=== PATIENT | female | born 1970 | race Caucasian/White ===

== ENCOUNTER 2024-05-03 13:24 | Emergency (ER) | payer OTHER, SELFPAY ==
[2024-05-03 13:30] VITALS: BP 172/116
[2024-05-03 13:44] VITALS: BMI 23.7
--- NOTE | 2024-05-03 15:42 | ED.GENMED ---
History of Present Illness
General
Chief Complaint: Crisis Evaluation
Time Seen by Provider: 05/03/24 13:43
History of Present Illness
History of Present Illness:
53-year-old female with history of alcohol abuse presenting for concern of suicidal ideation. Patient presents with her son who notes that prior to arrival, patient was screaming in her house and neighbors called, advising him to seek medical
attention for her. He notes multiple disruptions in the neighborhood from the patient. In addition, patient told him and texted him that she has a gun in her house and is going to shoot herself. Patient had tried to 302 the patient, however it
was not upheld, prompting him to come to the hospital. He notes that patient has very erratic behavior, initially was agreeable to getting psychiatric help, and then declining. Patient on arrival is not cooperative with questioning, labile. She
admits to intermittently drinking alcohol, denies drug use. Denies active suicidal ideation. Son also notes that patient fell 2 [address] ago [address] the [address], bruising her left eye. No additional history obtained at this time
Phy Exam
Physical Exam
Physical Exam:
General: Well-appearing, no clinical signs of dehydration, nontoxic and in no acute distress
HEENT: protecting airway
Head: Ecchymosis surrounding left orbit with mild bruising. Extraocular movements intact.
Neck: appears supple
CV: Normal heart rate
Resp: No accessory muscle use, no increased work of breathing, lungs clear to auscultation bilaterally
Abd: Soft and non-distended, no tenderness to palpation, normal bowel sounds
Extremities: No deformities, no swelling
Neuro: alert, no focal neurologic deficit
: deferred
Rectal: deferred
Psych: Erratic, not cooperative
Skin: Intact
Course
Orders/Labs/Results
Orders:
Orders
05/03/24 14:13
1:1 Observation - Suicide/ Violent Behavior As Directed
Electrocardiogram (*1) Urgent
Reason for Study: Other
Other Reason for Exam: psych
CT Facial Bones W/o Iv Contras Urgent
Comment:
Reason For Exam: L-occular bruising, fell 2 days ago
05/03/24 14:14
CT Head W/o Iv Contrast Urgent
Comment:
Reason For Exam: psych, L-eye bruising
EKG- Treatment ONCE
05/03/24 16:22
Acetaminophen Urgent
Alcohol Urgent
Complete Blood Count/With Diff Urgent
Comprehensive Metabolic Panel Urgent
Salicylate Urgent
Urine Drug Abuse Screen Urgent
Date Specimen was Collected: 05/03/24
Time Specimen was Collected: 14:21
Abnormal Lab Results
05/03/24
16:22
MCH 32.3 H pg
(27.0-31.0)
AST 58 H U/L
(14-36)
ALT 42 H U/L
(0-35)
Salicylates < 1.0 L mg/dl
(2.0-20.0)
Acetaminophen < 10 L ug/ml
(10-30)
05/03/24 16:22
05/03/24 16:22
Vital Signs
Initial and Last Documented VS:
Initial Vital Signs
Temp Pulse Resp BP Pulse Ox
98.4 F 118 20 172/116 96
05/03/24 13:30 05/03/24 13:30 05/03/24 13:30 05/03/24 13:30 05/03/24 13:30
Last Documented Vital Signs
Temp Pulse Resp BP Pulse Ox
98.4 F 118 20 172/116 96
05/03/24 13:30 05/03/24 13:30 05/03/24 13:30 05/03/24 13:30 05/03/24 13:30
MDM/Problems Addressed
MDM/Problems Addressed:
53-year-old female presenting to the emergency department for concern of psychiatric issues and suicidal ideation. Vital signs on arrival are significant for hypertension, however patient is agitated.
On exam, patient is in no acute distress, however again is uncooperative with questioning. Son expresses multiple concerns regarding patient's safety, notes that she was threatening to shoot herself, reports she has a gun in the house. She has
also had multiple altercations with neighbors in the neighborhood. At this time do feel that patient is a threat to herself and others given patient's present behavior and information by son. Crisis initially evaluated patient, patient however was
noncompliant with questioning. When discussed to patient that she would require 302 given safety, patient is now agreeable, and explained that she will go under a 201. Will screen with laboratory analysis. Given bruising around left orbit, will
obtain CT brain and facial bones, with lower suspicion for serious traumatic injury.
17:30 -CT imaging is unremarkable. Mild periorbital swelling. Labs show mild transaminitis, likely secondary to known alcohol usage. Alcohol level is elevated, however patient does not appear to be clinically intoxicated. Patient on 201, pending
placement. Feel patient is medically cleared for psychiatric evaluation
18:45 -patient accepted to [place], pending transfer
*Critical Care Note
Total Time (30-74mins, 75-104mins- exclusive of procedures): Not Applicable
ED Attending Note
-
Portions of this chart may have been created with voice recognition software.� Occasional wrong word or��sound alike� substitutions may have occurred due to the inherent limitations of voice recognition software.
Discharge Plan
Departure
Patient Disposition: Psych Facility
Date of Disposition: 05/03/24
Time of Disposition: 18:08
Condition: Fair
Discharge Problem:
Depression with suicidal ideation
Instructions: Depression, Adult (DC), BLOOD PRESSURE
Referrals:
UNKNOWN,NO INTERVIEW [Family Provider] -
Interventions
Interventions:
*Risk Screen - Suicide Last Done: 05/03/24 13:30
*General Assessment Last Done: 05/03/24 13:30
*Neglect/Abuse Screening Last Done: 10/21/24 13:30
ED- Fall Risk Assessment Last Done: 05/03/24 13:30
*ED COVID-19 Vaccine History Last Done: 05/03/24 13:30
ED-Psychological Assessment Last Done: 05/03/24 13:30
Discharge Date and Time
Print Language: WELSH
[2024-05-03 16:47] LABS: % Basophils 0.9 % (0-2); % Eosinophils 0.3 % (0-6); % Immature Granulocytes 0.3 % (0-0.5); % Lymphocytes 27.5 % (20.5-51.1); % Monocytes 5.6 % (1.7-9.3); % Neutrophils 65.4 % (42.2-75.2); Absolute Basophils 0.1 10^3/uL (0-0.2); Absolute Lymphocytes 2.1 10^3/uL (1.2-3.4); Absolute Monocytes 0.4 10^3/uL (0.1-0.6); Hematocrit 42.2 % (37.0-47.0); Hemoglobin 14.9 g/dL (12.0-16.0); Mean Corp Hgb Conc. 35.3 g/dL (33.0-37.0); Mean Corpuscular Hgb 32.3 pg (27.0-31.0); Mean Corpuscular Volume 91.5 fL (81.0-99.0); Mean Platelet Volume 8.8 fL (7.4-10.4); Nucleated Red Blood Cells % 0 %; Platelet Count 266 10^3/uL (130-400); Red Blood Cell Count 4.61 10^6/uL (4.20-5.40); Red Cell Dist. Width 13.8 % (11.5-14.5); White Blood Cell Count 7.7 10^3/uL (4.8-10.8)
[2024-05-03 17:14] LABS: ALT (SGPT) 42 U/L (0-35); AST (SGOT) 58 U/L (14-36); Acetaminophen < 10 ug/ml (10-30); Albumin 4.9 g/dl (3.5-5.0); Alcohol 200 mg/dl; Alkaline Phosphatase 64 U/L (38-126); Blood Urea Nitrogen 7 mg/dl (7-17); Calcium 9.6 mg/dl (8.4-10.2); Carbon Dioxide 24 mmol/L (22-30); Chloride 100 mmol/L (98-107); Estimated Creatinine Clearance 80 ml/min; Glucose 92 mg/dl (70-99); Salicylate < 1.0 mg/dl (2.0-20.0); Sodium 143 mmol/L (135-145); Total Bilirubin 0.5 mg/dl (0.2-1.3); Total Protein 7.2 g/dl (6.3-8.2); eGFR > 60.00
[2024-05-03 17:35] LABS: Amphetamines Negative (Negative); Barbiturates Negative (Negative); Benzodiazepines Negative (Negative); Buprenorphine Negative (Negative); Cocaine Negative (Negative); Marijuana Negative (Negative); Methadone Negative (Negative); Methamphetamines Negative (Negative); Opiates Negative (Negative); Phencyclidine Negative (Negative); Tricyclic Antidepressants Negative (Negative)
[2024-05-03] MEDS: TYLENOL 500 MG PO (19:35)
[2024-05-03 19:37] VITALS: BP 159/90
[2024-05-03] MEDS: ATIVAN 2 MG PO (21:24)
[2024-05-03] MEDS: NICODERM TRANSDERMAL 21 MG TRANSDERM (21:25)
[2024-05-03 21:28] VITALS: BP 120/89
== END 2024-05-03 23:39 ==
LOC: EMR 13:24
PROVIDERS: EMERGENCY PHYSICIAN Student in an Organized Health Care Education/Training Program
DX: F32.A Depression, unspecified (principal); R45.851 Suicidal ideations; F10.10 Alcohol abuse, uncomplicated; I10 Essential (primary) hypertension; Z86.73 Personal history of transient ischemic attack (TIA), and cerebral infarction without residual deficits; Z91.199 Patient's noncompliance with other medical treatment and regimen due to unspecified reason
CPT/HCPCS: 99284; 70450; 70486; 80053; 80143; 80179; 80306; 82077; 85025; 93005